=== PATIENT | male | born 1985 | race Two or more races ===

== ENCOUNTER 2022-09-02 01:21 | Emergency (ER) | payer MEDICARE, MEDICAID ==
[~2022-09-02] VITALS: Ht 162.6 cm; Wt 81.8 kg
[2022-09-02 01:53] VITALS: BP 155/95
[2022-09-02 02:43] LABS: Basophils # (auto) 0.1 10 ^3/uL (0-0.2); Basophils % (auto) 1.1 % (0.0-2.0); Eosinophils # (auto) 0.1 10 ^3/uL (0-0.8); Eosinophils % (auto) 1.5 % (0.0-7.0); Hematocrit 42.4 % (41.0-53.0); Hemoglobin 14.2 g/dL (13.5-17.5); Lymphocytes # (auto) 1.4 10 ^3/uL (0.4-5.4); Lymphocytes % (auto) 26.1 % (10.0-50.0); Mean Corpuscular Hemoglobin 30.3 pg (28.0-32.0); Mean Corpuscular Hgb Conc. 33.5 g/dL (32.0-36.0); Mean Corpuscular Volume 90.7 fL (80.0-100.0); Monocytes # (auto) 0.8 10 ^3/uL (0-1.3); Neutrophils # (auto) 2.9 10 ^3/uL (1.6-8.6); Neutrophils % (auto) 55.3 % (37.0-80.0); Nucleated Red Blood Cells % 0.2 %; Red Blood Cells 4.67 10^6/uL (4.5-5.90); Red Cell Distribution Width 14.3 % (11.8-14.3); White Blood Cell 5.2 10^3/uL (4.4-10.8)
[2022-09-02 03:00] LABS: Albumin 4.5 g/dL (3.4-5.0); Calcium 9.7 mg/dL (8.5-10.1); Potassium 3.9 mmol/L (3.5-5.1)
[2022-09-02 03:03] LABS: BUN/Creatinine Ratio 17.1 (10.0-20.0); Bilirubin, Total 0.6 mg/dL (0.2-1.0); Total Protein 8.1 g/dL (6.4-8.2)
== END 2022-09-02 09:50 | disposition left against medical advice (07) ==
LOC: EDBD 01:21 → ER 01:21
DX: R10.9 Unspecified abdominal pain (principal); Z53.21 Procedure and treatment not carried out due to patient leaving prior to being seen by health care provider
CPT/HCPCS: 36415; 80053; 85025

== ENCOUNTER 2022-11-14 18:32 | Inpatient (IN) | payer MEDICARE, MEDICAID ==
[~2022-11-14] VITALS: Ht 172.7 cm; Wt 80.7 kg
[2022-11-14 18:50] VITALS: PULSE 81; RESP 19
[2022-11-14] MEDS ORDERED: ACCU-CHEK COMFORT CURVE STRIP VI ONE (19:00)
[2022-11-14 19:28] LABS: Basophils # (auto) 0.1 10 ^3/uL (0-0.2); Basophils % (auto) 0.9 % (0.0-2.0); Eosinophils # (auto) 0.1 10 ^3/uL (0-0.8); Eosinophils % (auto) 1.6 % (0.0-7.0); Hematocrit 38.9 % (41.0-53.0); Hemoglobin 13.2 g/dL (13.5-17.5); Lymphocytes # (auto) 2.4 10 ^3/uL (0.4-5.4); Lymphocytes % (auto) 39.9 % (10.0-50.0); Mean Corpuscular Hemoglobin 29.5 pg (28.0-32.0); Mean Corpuscular Hgb Conc. 33.9 g/dL (32.0-36.0); Mean Corpuscular Volume 87.2 fL (80.0-100.0); Monocytes # (auto) 0.6 10 ^3/uL (0-1.3); Monocytes % (auto) 10.4 % (0.0-12.0); Neutrophils # (auto) 2.9 10 ^3/uL (1.6-8.6); Neutrophils % (auto) 47.2 % (37.0-80.0); Nucleated Red Blood Cells % 0.2 %; Red Blood Cells 4.46 10^6/uL (4.5-5.90); Red Cell Distribution Width 13.6 % (11.8-14.3); White Blood Cell 6.1 10^3/uL (4.4-10.8)
[2022-11-14 19:30] VITALS: PULSE 83; RESP 13; O2SAT 94
[2022-11-14 19:41] LABS: Albumin 3.2 g/dL (3.4-5.0)
[2022-11-14 19:44] LABS: BUN/Creatinine Ratio 19.8 (10.0-20.0); Bilirubin, Total 0.2 mg/dL (0.2-1.0); Total Protein 6.3 g/dL (6.4-8.2)
[2022-11-14 19:45] LABS: Carbamazepine (Tegretol) < 0.5 ug/mL (4-12); Phenytoin (Dilantin) < 0.4 ug/mL (10-20)
[2022-11-14 19:48] LABS: Valproic Acid (Depakene) 113 ug/mL (50-100)
[2022-11-15] MEDS ORDERED: LACTATED RINGER'S 1,000 ML IV ONE (02:45)
[2022-11-15] MEDS ORDERED: ONDANSETRON HCL 4 MG/2 ML VIAL IV PRN (04:15)
[2022-11-15] MEDS ORDERED: LORazepam 2MG/ML-1ML VIAL IV PRN ×3 (04:15→16:30)
[2022-11-15] MEDS ORDERED: DOCUSATE SOD 100 MG CAP PO PRN (04:15)
[2022-11-15] MEDS ORDERED: SOD CHL 0.45% 1,000 ML IV SCH (04:15)
[2022-11-15] MEDS ORDERED: HYDROcodone-ACET 5/325MG TAB PO PRN (04:15)
[2022-11-15] MEDS ORDERED: ACETAMINOPHEN 325 MG TAB PO PRN (04:15)
[2022-11-15 04:44] LABS: Basophils # (auto) 0.1 10 ^3/uL (0-0.2); Eosinophils # (auto) 0.1 10 ^3/uL (0-0.8); Eosinophils % (auto) 2.1 % (0.0-7.0); Hematocrit 38.7 % (41.0-53.0); Lymphocytes # (auto) 2.6 10 ^3/uL (0.4-5.4); Lymphocytes % (auto) 44.1 % (10.0-50.0); Mean Corpuscular Hemoglobin 29.9 pg (28.0-32.0); Mean Corpuscular Hgb Conc. 33.7 g/dL (32.0-36.0); Mean Corpuscular Volume 88.7 fL (80.0-100.0); Monocytes # (auto) 0.6 10 ^3/uL (0-1.3); Monocytes % (auto) 10.7 % (0.0-12.0); Neutrophils # (auto) 2.5 10 ^3/uL (1.6-8.6); Neutrophils % (auto) 42.1 % (37.0-80.0); Nucleated Red Blood Cells % 0.2 %; Red Blood Cells 4.36 10^6/uL (4.5-5.90); Red Cell Distribution Width 13.5 % (11.8-14.3)
[2022-11-15] MEDS ORDERED: levETIRAcetam 500 MG/5ML INJ IV ONE (04:47)
[2022-11-15 05:02] LABS: Potassium 3.8 mmol/L (3.5-5.1)
[2022-11-15 05:21] LABS: BUN/Creatinine Ratio 26.3 (10.0-20.0)
[2022-11-15 05:24] LABS: Bilirubin, Total 0.1 mg/dL (0.2-1.0); Total Protein 6.1 g/dL (6.4-8.2)
[2022-11-15] MEDS ORDERED: MORPHINE SULFATE INJ 2 MG/ml SYRG IV PRN (06:30)
[2022-11-15] MEDS ORDERED: NITROGLYCERIN 0.4 MG SL TAB SL PRN (06:30)
[2022-11-15] MEDS ORDERED: DIVA500T13 PO (12:34)
[2022-11-15] MEDS ORDERED: QUET100T47 PO (12:34)
[2022-11-15] MEDS ORDERED: HAL5T PO (12:34)
[2022-11-15 12:38] VITALS: BP 106/57; PULSE 74; RESP 18; TEMP 97.3; O2SAT 97
[2022-11-15] MEDS ORDERED: FENO160T PO (13:01)
[2022-11-15] MEDS ORDERED: PANT40T PO (13:01)
[2022-11-15] MEDS ORDERED: SERT-160 PO (13:01)
[2022-11-15] MEDS ORDERED: CLON0.1T PO (13:01)
[2022-11-15] MEDS ORDERED: DOCU250C67 PO (13:01)
[2022-11-15] MEDS ORDERED: LORA-483 PO (13:01)
[2022-11-15] MEDS ORDERED: TAMS0.4C36 PO (13:01)
[2022-11-15] MEDS ORDERED: LITH300T3 PO (13:01)
[2022-11-15] MEDS ORDERED: [UNRECOGNIZED DRUG - CODE] PO (13:01)
[2022-11-15] MEDS ORDERED: MULT-1056 PO (13:01)
[2022-11-15] MEDS ORDERED: BENZ2TAB50 PO (13:01)
[2022-11-15] MEDS ORDERED: ALPRAZolam 0.5 MG TAB PO PRN (16:30)
[2022-11-15 17:02] VITALS: BP 106/69; PULSE 71; RESP 18; TEMP 98.5; O2SAT 96
[2022-11-15] MEDS: SODIUM CHLORIDE 0.9% 1,000 ML IV SCH (17:29)
[2022-11-15 20:00] VITALS: BP 107/68; PULSE 74; PULSE 78; RESP 14; TEMP 98.1; O2SAT 95
[2022-11-15 22:00] VITALS: BP 107/68; PULSE 78; RESP 14; TEMP 98.1; O2SAT 95
[2022-11-16] VITALS (7 sets, daily range): BP systolic 101–122; BP diastolic 54–71; PULSE 67–96; RESP 14–16; TEMP 97.4–98.2; O2SAT 92–96
[2022-11-16] MEDS: SODIUM CHLORIDE 0.9% 1,000 ML IV SCH (03:05)
[2022-11-16 06:02] LABS: Basophils # (auto) 0 10 ^3/uL (0-0.2); Basophils % (auto) 0.6 % (0.0-2.0); Eosinophils # (auto) 0.1 10 ^3/uL (0-0.8); Eosinophils % (auto) 1.4 % (0.0-7.0); Hematocrit 40.4 % (41.0-53.0); Hemoglobin 13.7 g/dL (13.5-17.5); Lymphocytes # (auto) 2.3 10 ^3/uL (0.4-5.4); Lymphocytes % (auto) 35.2 % (10.0-50.0); Mean Corpuscular Hemoglobin 29.8 pg (28.0-32.0); Mean Corpuscular Hgb Conc. 33.9 g/dL (32.0-36.0); Mean Corpuscular Volume 87.8 fL (80.0-100.0); Monocytes # (auto) 0.7 10 ^3/uL (0-1.3); Monocytes % (auto) 10.9 % (0.0-12.0); Neutrophils # (auto) 3.4 10 ^3/uL (1.6-8.6); Neutrophils % (auto) 51.9 % (37.0-80.0); Red Cell Distribution Width 13.6 % (11.8-14.3); White Blood Cell 6.5 10^3/uL (4.4-10.8)
[2022-11-16 06:26] LABS: Potassium 4.2 mmol/L (3.5-5.1)
[2022-11-16 06:39] LABS: Albumin 3.2 g/dL (3.4-5.0); BUN/Creatinine Ratio 18.5 (10.0-20.0); Bilirubin, Total 0.2 mg/dL (0.2-1.0); Calcium 9.2 mg/dL (8.5-10.1); Total Protein 6.3 g/dL (6.4-8.2)
[2022-11-17 05:00] VITALS: BP 106/75; PULSE 71; RESP 14; TEMP 98.1; O2SAT 96
[2022-11-17 08:00] VITALS: BP 116/72; PULSE 78; PULSE 83; PULSE 88; RESP 16; RESP 20; TEMP 97.7; O2SAT 96
[2022-11-17 09:00] VITALS: BP 116/72; PULSE 88; RESP 20; TEMP 97.7; O2SAT 96
[2022-11-17 12:42] VITALS: BP 127/68; PULSE 80; RESP 20; TEMP 97.6; O2SAT 97
[2022-11-17 12:54] VITALS: BP 127/68; PULSE 80; RESP 20; TEMP 36.4; O2SAT 97
== END 2022-11-17 14:30 | disposition home or self-care (01) | DRG 101 ==
LOC: ER 18:32 → EDUNIT# 18:32 → EDBD 18:32 → TELE 11-15 06:30 → TELE-CENTR 11-15 12:01
PROVIDERS: ADMIT Nurse Practitioner Acute Care; ATTEND Nurse Practitioner Acute Care
DX: G40.901 Epilepsy, unspecified, not intractable, with status epilepticus (principal); E44.0 Moderate protein-calorie malnutrition; I95.9 Hypotension, unspecified; F31.9 Bipolar disorder, unspecified; F90.9 Attention-deficit hyperactivity disorder, unspecified type; F41.9 Anxiety disorder, unspecified; F17.200 Nicotine dependence, unspecified, uncomplicated; F79 Unspecified intellectual disabilities; F95.2 Tourette's disorder; Z62.810 Personal history of physical and sexual abuse in childhood; Z79.899 Other long term (current) drug therapy; Z68.27 Body mass index [BMI] 27.0-27.9, adult
CPT/HCPCS: 36415; 70450; 70551; 71045; 80053; 80156; 80164; 80185; 82962; 85025; 87081; 93005; 95819; G0378; J7060